=== PATIENT | male | born 1995 | race Caucasian/White ===

== ENCOUNTER 2023-03-04 16:45 | Outpatient (CLI) | payer OTHER, SELFPAY ==
--- NOTE | 2023-03-04 17:04 | XR_ITS ---
WS: [id number] Exam: XR chest 2V* [id number] Date/Time of Exam: 03/04/2023 5:05 PM Reason For Exam: regulated program monitoring No priors. Findings: The lungs are clear and fully expanded. Costophrenic angles are sharp. No infiltrates. Bronchovascula r relief appears normal. Cardiac silhouette is unremarkable. Bony elements are intact. IMPRESSION: Unremarkable chest radiograph.
== END 2023-03-04 16:46 | disposition home or self-care (01) ==
LOC: RAD 16:55
DX: Z01.89 Encounter for other specified special examinations (principal)
CPT/HCPCS: 71046